=== PATIENT | female | born 1945 | race Caucasian/White ===

== ENCOUNTER → 2017-01-10 | Outpatient (CLI) | payer OTHER, MEDICARE | LOC: BRMIMAGING 14:09 | PROVIDERS: ATTEND Internal Medicine Hematology & Oncology | DX: Z78.0 Asymptomatic menopausal state (principal); Z85.3 Personal history of malignant neoplasm of breast; Z79.899 Other long term (current) drug therapy ==

== ENCOUNTER 2017-01-24 12:18 | Observation (INO) | payer OTHER, MEDICARE ==
[2017-01-24] MEDS ORDERED: fentaNYL 100 MCG/2 ML INJ IVP ONE (13:53)
[2017-01-24] MEDS ORDERED: ONDANSETRON 4 MG/2 ML VIAL IVP ONE (13:53)
--- NOTE | 2017-01-24 13:56 | EDPHY ---
H & P Time Seen by Provider: 01/24/17 13:52 HPI/ROS: CHIEF COMPLAINT: Abdominal pain HISTORY OF PRESENT ILLNESS: Patient is had symptoms intermittently for the last month or maybe 2. Since Tuesday it has been consistent. Located in the right upper quadrant radiates to her back. It is worse if she eats. Currently it is moderate in severity. She was doing okay this morning and had water and coffee at 9:00 a.m. and it is been constant ever since. REVIEW OF SYSTEMS: Eye: no change in vision ENT: no sore throat Cardiac: no chest pain or syncope Pulmonary: no cough or SOB Abdomen: HPI Musculoskeletal: no back pain Skin: no rash Neuro: no headache Constitutional: no fever : no urinary symptoms A comprehensive 10 point review of systems is otherwise negative aside from elements mentioned in the history of present illness. PAST MEDICAL HISTORY: Includes double mastectomy by Dr. Rob Walton, anxiety , thyroid disease, ankle surgery Social history: Last alcohol 1 month ago. Family history: Positive for gallstones in her mother General Appearance: Alert and conversant, cooperative. Eyes: No scleral icterus. ENT, Mouth: Normal mucous membranes. Respiratory: Normal respiratory effort, breath sounds equal, lungs are clear to auscultation. Cardiovascular: Regular rate and rhythm. Gastrointestinal: Right upper quadrant abdominal tenderness. Neurological: Alert and oriented x3. Normally conversant. Face symmetric, normal movement and sensation in all extremities. Skin: Warm and dry, no rashes. Musculoskeletal: No peripheral edema and no joint swelling. Psychiatric: Not agitated. Emergency Department course/MDM: Fentanyl 50 mcg IV, Zofran 4 mg IV, plan for gallbladder ultrasound lipase and LFTs. 1544: Mao, normal right upper quadrant ultrasound without gallstones. No reason for pain. 1545: Discussed with the patient, plan for CT abdomen pelvis, admission, GI consultation. Does not appear to have cholecystitis may require a HIDA scan is still symptomatic. Can't go home because she can't eat or drink anything without severe pain. Patient was admitted to the hospital, CT scan reported by Maureen as showing gastric ulcer. Smoking Status: Never smoked Constitutional: Initial Vital Signs Temperature (C) 36.8 C 01/24/17 12:24 Heart Rate 83 01/24/17 12:24 Respiratory Rate 18 01/24/17 12:24 Blood Pressure 138/69 H 01/24/17 12:24 O2 Sat (%) 95 01/24/17 12:24 O2 Delivery Mode Room Air Allergies/Adverse Reactions: No Allergies [NKA] Allergy (Verified 01/24/17 12:31) Home Medications: Medication Instructions Recorded Levothyroxine [Synthroid 75 mcg 75 mcg PO DAILY AT 6AM 12/09/11 (*)] Anastrozole [Arimidex 1 mg (*)] 1 mg PO HS 05/22/14 DESVENLAFAXINE SUCCINATE [Pristiq] 150 mg PO DAILY 01/24/17 celeCOXIB [Celebrex (*)] 200 mg PO DAILY 01/24/17 Medical Decision Making - Diagnostics Imaging Results: Imaging Impressions Abdomen Ultrasound 01/24/17 14:11 Impression: Fatty infiltration of the liver. Otherwise, negative right upper quadrant ultrasound. Findings and recommendations discussed with Dr. Francis Abdi at 1543 hours on January 24, 2017. Final report concurs with initial preliminary interpretation. Abdomen CT 01/24/17 15:49 Impression: 1. Gastric wall thickening, with an apparent gastric ulcer in the distal stomach, without evidence of perforation. 2. Diverticulosis, without evidence of diverticulitis. 3. Degenerative change in the spine. 4. Additional findings, as above. Findings discussed with Kale, the patient's nurse on January 24, 2017 at 1722 hours. E:NW/amm Differential Diagnosis: Differential diagnosis considered for abdominal pain including but not limited to appendicitis, cholecystitis, pancreatitis, gastritis and urinary tract infection. Consult/Admit Bed Type: [place] [id number],[facility] 1615 - Data Points Laboratory Results: Laboratory Results 01/24/17 13:48 01/24/17 13:48 01/24/17 01/24/17 01/24/17 14:00 13:48 13:48 WBC RBC Hgb Hct MCV MCH MCHC RDW Plt Count MPV Neut % (Auto) Lymph % (Auto) Charlton % (Auto) Eos % (Auto) Baso % (Auto) Nucleat RBC Rel Count Absolute Neuts (auto) Absolute Lymphs (auto) Absolute Monos (auto) Absolute Eos (auto) Absolute Basos (auto) Absolute Nucleated RBC Immature Gran % Immature Gran # Sodium 139 mEq/L mEq/L (134-144) Potassium 4.2 mEq/L mEq/L (3.5-5.2) Chloride 100 mEq/L mEq/L (97-110) Carbon Dioxide 26 mEq/l mEq/l (22-31) Anion Gap 13 mEq/L mEq/L (8-16) BUN 13 mg/dL mg/dL (7-23) Creatinine 0.7 mg/dL mg/dL (0.6-1.0) Estimated GFR > 60 Glucose 84 mg/dL mg/dL (70-100) Calcium 9.5 mg/dL mg/dL (8.5-10.4) Total Bilirubin 0.5 mg/dL mg/dL (0.1-1.4) Conjugated Bilirubin 0.3 mg/dL mg/dL (0.0-0.5) Unconjugated Bilirubin 0.2 mg/dL mg/dL (0.0-1.1) AST 22 IU/L IU/L (14-46) ALT 26 IU/L IU/L (9-52) Alkaline Phosphatase 93 IU/L IU/L (38-126) Total Protein 7.6 g/dL g/dL (6.3-8.2) Albumin 4.5 g/dL g/dL (3.5-5.0) Lipase 137 IU/L IU/L (23-300) H. pylori IgG Antibody NEGATIVE (NEG) 01/24/17 13:48 WBC 5.71 10^3/uL 10^3/uL (3.80-9.50) RBC 4.54 10^6/uL 10^6/uL (4.18-5.33) Hgb 14.4 g/dL g/dL (12.6-16.3) Hct 43.5 % % (38.0-47.0) MCV 95.8 fL fL (81.5-99.8) MCH 31.7 pg pg (27.9-34.1) MCHC 33.1 g/dL g/dL (32.4-36.7) RDW 13.0 % % (11.5-15.2) Plt Count 149 10^3/uL L 10^3/uL (150-400) MPV 11.3 fL fL (8.7-11.7) Neut % (Auto) 55.6 % % (39.3-74.2) Lymph % (Auto) 31.7 % % (15.0-45.0) Charlton % (Auto) 9.1 % % (4.5-13.0) Eos % (Auto) 2.3 % % (0.6-7.6) Baso % (Auto) 1.1 % % (0.3-1.7) Nucleat RBC Rel Count 0.0 % % (0.0-0.2) Absolute Neuts (auto) 3.18 10^3/uL 10^3/uL (1.70-6.50) Absolute Lymphs (auto) 1.81 10^3/uL 10^3/uL (1.00-3.00) Absolute Monos (auto) 0.52 10^3/uL 10^3/uL (0.30-0.80) Absolute Eos (auto) 0.13 10^3/uL 10^3/uL (0.03-0.40) Absolute Basos (auto) 0.06 10^3/uL 10^3/uL (0.02-0.10) Absolute Nucleated RBC 0.00 10^3/uL 10^3/uL (0-0.01) Immature Gran % 0.2 % % (0.0-1.1) Immature Gran # 0.01 10^3/uL 10^3/uL (0.00-0.10) Sodium Potassium Chloride Carbon Dioxide Anion Gap BUN Creatinine Estimated GFR Glucose Calcium Total Bilirubin Conjugated Bilirubin Unconjugated Bilirubin AST ALT Alkaline Phosphatase Total Protein Albumin Lipase H. pylori IgG Antibody Medications Given: Hydromorphone HCl (Dilaudid) 0.25 - 0.5 mg IVP Q4 PRN PRN Reason: Pain, Severe Unable to Take PO Stop: 02/03/17 19:23 Last Admin: 01/24/17 19:58 Dose: 0.5 mg Pantoprazole Sodium 40 mg/ (Sodium Chloride) 100 mls @ 200 mls/hr IV BID NEHAL Stop: 07/23/17 18:44 Last Admin: 01/24/17 18:52 Dose: 100 mls Lidocaine/Diphenhydramine/Alumin/Mg (Maalox/Diphenhydramine/Lido) 30 ml PO PRN PRN PRN Reason: Dyspepsia Stop: 07/23/17 18:32 Last Admin: 01/24/17 18:51 Dose: 30 ml Discontinued Medications Fentanyl (Sublimaze) 50 mcg IVP EDNOW ONE Stop: 01/24/17 13:54 Last Admin: 01/24/17 14:00 Dose: 50 mcg Sodium Chloride (Ns) 1,000 mls @ 0 mls/hr IV ONCE ONE; Wide Open PRN Reason: Protocol Stop: 01/24/17 14:00 Last Admin: 01/24/17 14:00 Dose: 1,000 mls Sodium Chloride (Ns) 1,000 mls @ 0 mls/hr IV EDNOW ONE; Wide Open PRN Reason: Protocol Stop: 01/24/17 15:53 Last Admin: 01/24/17 15:57 Dose: 1,000 mls Morphine Sulfate (Morphine) 4 mg IVP EDNOW ONE Stop: 01/24/17 15:25 Last Admin: 01/24/17 15:33 Dose: 4 mg Ondansetron HCl (Zofran) 4 mg IVP EDNOW ONE Stop: 01/24/17 13:54 Last Admin: 01/24/17 14:00 Dose: 4 mg Departure - Departure Disposition: [facility] Inpatient Acute Clinical Impression: Abdominal pain Qualifiers: Abdominal location: right upper quadrant Qualified Code(s): R10.11 - Right upper quadrant pain Condition: Good
[2017-01-24] MEDS ORDERED: NS 1,000 ML IV ONE ×2 (13:59→15:52)
[2017-01-24 14:00] LABS: % IMMATURE GRANULYOCYTES 0.2 % (0.0-1.1); ABSOLUTE IMMATURE GRANULOCYTES 0.01 10^3/uL (0.00-0.10); ADD DIFF? NO; ADD MORPH? NO; ADD SCAN? NO; ATYPICAL LYMPHOCYTE FLAG 0 (0-99); FRAGMENT RBC FLAG 0 (0-99); HEMATOCRIT 43.5 % (38.0-47.0); HEMOGLOBIN 14.4 g/dL (12.6-16.3); LEFT SHIFT FLG 0 (0-99); LIPEMIA HEMOLYSIS FLAG 80 (0-99); MEAN CELL HEMOGLOBIN 31.7 pg (27.9-34.1); MEAN CELL HEMOGLOBIN CONCENTR. 33.1 g/dL (32.4-36.7); MEAN CELL VOLUME 95.8 fL (81.5-99.8); MEAN PLATELET VOLUME 11.3 fL (8.7-11.7); PLATELET CLUMPS FLAG 0 (0-99); PLATELET COUNT 149 10^3/uL (150-400); RED BLOOD CELL COUNT 4.54 10^6/uL (4.18-5.33)
[2017-01-24 14:12] LABS: ANION GAP 13 mEq/L (8-16); CALCIUM 9.5 mg/dL (8.5-10.4); CARBON DIOXIDE 26 mEq/l (22-31); CHLORIDE 100 mEq/L (97-110); CREATININE 0.7 mg/dL (0.6-1.0); GLOMERULAR FILTRATION RATE > 60; GLUCOSE 84 mg/dL (70-100); POTASSIUM 4.2 mEq/L (3.5-5.2); SODIUM 139 mEq/L (134-144)
[2017-01-24 14:32] LABS: ALBUMIN 4.5 g/dL (3.5-5.0); BILIRUBIN,TOTAL 0.5 mg/dL (0.1-1.4); BILIRUBIN-CONJUGATED 0.3 mg/dL (0.0-0.5); BILIRUBIN-UNCONJUGATED 0.2 mg/dL (0.0-1.1); TOTAL PROTEIN 7.6 g/dL (6.3-8.2)
[2017-01-24] MEDS ORDERED: IOPAMIDOL (ISOVUE-300) 100 ML BTL ONE (15:55)
[2017-01-24] MEDS ORDERED: MBX SOLN 30 ML BOTTLE PO PRN (18:33)
--- NOTE | 2017-01-24 18:38 | SOAPPROG ---
SOAP Progress Note Assessment/Plan: Assessment:Consult dictated. Patient has gastric ulcer on CT. On NSAIDs. Will check H. pylori Ab, start Protonix, GI cocktail. If tolerating POs can go home tomorrow on 12 weeks of Protonix. Will need EGD in a month to confirm healing. No need for inpatient EGD at this time given absence of "red flag" symptoms. Plan: 01/24/17 18:36 Objective: Vital Signs Temp Pulse Resp BP Pulse Ox 36.8 C 68 16 147/68 H 90 L 01/24/17 17:01 01/24/17 17:01 01/24/17 17:01 01/24/17 17:01 01/24/17 17:01 01/23/17 01/24/17 01/25/17 05:59 05:59 05:59 Intake Total 4000 Balance 4000 ICD10 Worksheet Patient Problems: Problems Problem Status Onset Abdominal pain Acute Ankle arthritis Acute
[2017-01-24] MEDS: PANTOPRAZOLE SODIUM 40 MG in NS 100 ML IV SCH ×2 (18:52→21:41)
[2017-01-24] MEDS ORDERED: PROMETHAZINE HCL 25 MG/ML INJ IVP PRN (19:24)
[2017-01-24] MEDS ORDERED: ACETAMINOPHEN 325 MG TAB PO PRN (19:24)
[2017-01-24] MEDS ORDERED: ONDANSETRON 4 MG/2 ML VIAL IVP PRN (19:24)
--- NOTE | 2017-01-24 19:55 | GHP ---
[f rep st] HISTORY AND PHYSICAL DATE OF ADMISSION: 01/24/2017 CHIEF COMPLAINT: Right upper quadrant abdominal pain. HISTORY OF PRESENT ILLNESS: This is a 71-year-old female with a history of arthritis, on Celebrex an d ibuprofen, who presents to the hospital with right upper quadrant abdominal pain. The pain started about a month ago, but it was described as twinges that would come and go. The pain has been increa sing since Tuesday. She described it as a severe, dull ache in her right upper quadrant that is worse with eating. Over the past 24 hours, it has escalated. She denies any vomiting but has had some na usea today. She denies any hematemesis. She denies any melena or bloody stools. She has not been h aving any weight loss. She denies any fevers but has had some chills. PAST MEDICAL HISTORY: Arthritis and breast cancer. PAST SURGICAL HISTORY: 1. Double mastectomies. 2. Right total hip arthroplasty. 3. Left ankle joint replacement. MEDICATIONS: Reviewed. Refer to [employer] for details. ALLERGIES: No known drug allergies. SOCIAL HISTORY: She denies any alcohol, tobacco, or illicit drug use. FAMILY HISTORY: Significant for hypertension. REVIEW OF SYSTEMS: A comprehensive 10-point review of systems was done and that was negative, except for as mentioned in the HPI. PHYSICAL EXAMINATION: VITAL SIGNS: Blood pressure 147/68, pulse 68, respiratory rate 16, O2 sat 90% on room air, temperature afebrile. GENERAL: In no acute distress. HEAD: Normocephalic, atraumati c. EYES: PERRLA. Sclerae anicteric. MOUTH: Moist mucous membranes. NECK: Supple. No lymphaden opathy. CARDIOVASCULAR: S1 and S2. No murmurs, rubs, clicks, gallops, or JVD. No lower extremity edema. PULMONARY: Lungs are clear. No wheezes, rales, or rhonchi. ABDOMEN: Soft. She does have some tenderness to palpation in the right upper quadrant. There is no guarding or rebound tenderness . Normoactive bowel sounds. EXTREMITIES: No clubbing or cyanosis. NEURO: Cranial nerves 2-12 tiffanie ssly intact. No focal motor or sensory deficits. SKIN: Clear. No rashes. DIAGNOSTICS: WBC is 5.7, hemoglobin 14.4, hematocrit 43.5, platelets 149. Sodium 139, potassium 4.2, chloride 100, BUN 13, creatinine 0.7, glucose 84. LFTs were reviewed and unremarkable. Abdominal ultrasound was reviewed, which revealed fatty infiltration of the liver but was otherwise r ead as negative. CT of the abdomen and pelvis was reviewed, showing gastric wall thickening with an apparent gastric u lcer in the distal stomach, without evidence of perforation. Refer to report for full details. ASSESSMENT: This is a 71-year-old female who presents to the hospital with right upper quadrant abdo gallito pain found to have distal gastric ulcer seen on CAT scan, which is likely contributing to the p atient's pain. Other considerations include biliary colic; however, this appears to be less likely g iven her normal LFTs and unremarkable abdominal ultrasound. PLAN: The patient will be admitted to the hospital, where she will be seen by Dr. De Paz from [facility]. We will start with b.i.d. proton pump inhibitors and treat her pain symptomatically. We will defer further imaging, such as a HIDA scan to evaluate her biliary system, at this time since h er pain is most likely due to the gastric ulcer that was seen on CT. I did discuss stopping NSAID tr eatment with the patient, who sounds rather reluctant to do this, and Celebrex has really helped her quality of life, given her multiple joint replacements. I recommended that she start Tylenol. The patient requests to be full code status. If the patient's symptoms are improved in the morning, she can likely be discharged with out patient followup with Dr. De Paz. /[id number]/MODL
[2017-01-24] MEDS: HYDROmorphONE/DILAUDID 2 MG/ML INJ IVP PRN (19:58)
--- NOTE | 2017-01-24 20:05 | GCON ---
[f rep st] CONSULTATION IMPRESSION: Abdominal pain most likely due to a gastric ulcer as documented by CT scan. There is no evidence of gastrointestinal bleeding or other red-flag symptoms. This is most likely due to her no nsteroidal anti-inflammatory drug usage but will need to rule out Helicobacter pylori. RECOMMENDATIONS: 1. Start intravenous Protonix tonight. 2. Mingo diet. 3. Gastrointestinal cocktail for pain control along with narcotics as needed. 4. Would hold EGD at this time given absence of red-flag symptoms but patient will need an endoscopy as an outpatient in approximately a month to confirm healing and rule out any malignant process. 5. If possible, limit nonsteroidal intake. HISTORY OF PRESENT ILLNESS: The patient is a 71-year-old female with long-standing Celebrex for her arthritis. She also supplements this with Advil. For the past month, she has had a right upper quad rant discomfort, which over the last 3 days has become more severe to the point that she has not been able to eat for the last 24 hours as eating makes the pain worse. She denies any melena or bloody s tool or any significant weight loss. She has no previous history of peptic disease. She has had a c olonoscopy which was normal approximately 2 years ago. In the ER, patient underwent evaluation including an ultrasound which was negative and a CT scan whic h showed gastric ulcer. No evidence of perforation or pathologically enlarged lymph nodes. The hayden ent was admitted for observation. PAST MEDICAL HISTORY: Significant for osteoarthritis with replacement of ankle. She also had mastec nino, and is on treatment for anxiety and thyroid disease. MEDICATIONS: Pristiq, Synthroid, Arimidex, Celebrex, and Advil. ALLERGIES: None are known. FAMILY HISTORY: Noncontributory. PHYSICAL EXAM: GENERAL: Reveals normally developed and normally nourished female in no acute distre ss. ABDOMEN: Soft, and flat. There is some tenderness in the right upper quadrant, more toward the flank than would be suspected from a gastric source. No masses, rebound or guarding noted. LABORATORIES: Show normal CBC with hemoglobin 14.4 and hematocrit 43.5, white count 5.7. Chemistrie s are grossly normal. /[id number]/MODL
[2017-01-24] MEDS ORDERED: ANASTROZOLE 1 MG TAB PO SCH (21:00)
[2017-01-25] MEDS ORDERED: LEVOTHYROXINE 75 MCG TAB PO SCH (06:00)
[2017-01-25] MEDS: HYDROmorphONE/DILAUDID 2 MG/ML INJ IVP PRN (06:18)
[2017-01-25] MEDS ORDERED: DESVENLAFAXINE SUCCINATE PO SCH ×2 (09:00)
[2017-01-25] MEDS: PANTOPRAZOLE SODIUM 40 MG in NS 100 ML IV SCH (09:35)
[2017-01-25 10:27] LABS: % IMMATURE GRANULYOCYTES 0.2 % (0.0-1.1); ABSOLUTE IMMATURE GRANULOCYTES 0.01 10^3/uL (0.00-0.10); ADD DIFF? NO; ADD MORPH? NO; ADD SCAN? NO; ATYPICAL LYMPHOCYTE FLAG 0 (0-99); FRAGMENT RBC FLAG 0 (0-99); HEMATOCRIT 41.1 % (38.0-47.0); HEMOGLOBIN 13.4 g/dL (12.6-16.3); LEFT SHIFT FLG 0 (0-99); LIPEMIA HEMOLYSIS FLAG 80 (0-99); MEAN CELL HEMOGLOBIN 32.1 pg (27.9-34.1); MEAN CELL HEMOGLOBIN CONCENTR. 32.6 g/dL (32.4-36.7); MEAN CELL VOLUME 98.3 fL (81.5-99.8); MEAN PLATELET VOLUME 11.4 fL (8.7-11.7); PLATELET CLUMPS FLAG 0 (0-99); PLATELET COUNT 122 10^3/uL (150-400); RED BLOOD CELL COUNT 4.18 10^6/uL (4.18-5.33); RED CELL DISTRIBUTION WIDTH 13.2 % (11.5-15.2)
[2017-01-25] MEDS ORDERED: DOCUSATE SODIUM 100 MG CAP PO SCH (11:30)
[2017-01-25] MEDS: SUCRALFATE 1 GM/10 ML UDCUP PO SCH ×4 (11:36→17:15)
[2017-01-25] MEDS: traMADol 50 MG TAB PO SCH ×2 (11:36→18:06)
[2017-01-25 11:47] VITALS: RESP 18
[2017-01-25 15:19] VITALS: BP 104/65; PULSE 74; TEMP 98.1; O2SAT 94
[2017-01-25] MEDS ORDERED: FLU VACC QS 2017-18 (3YR+)/PF 0.5 ML SYR (FLUARIX QUAD) IM ONE (15:22)
--- NOTE | 2017-01-25 17:50 | PDDCSUM ---
Discharge Summary Discharge Summary: DISCHARGE DIAGNOSES 1- NSAID induced gastric ulcer, h pylori negative 2- acute abdominal pain due to above 3- chronic arthritis with ongoing pain 4- insomnia for which she had been taking nightly advil PM COMPLICATIONS: none CONSULTATIONS: Dr De Paz GI PROCEDURES: adominal CT showing gastric ulcer HOSPITAL COURSE: She responded quite well to discontinued NSAID, PPI use bid, and Carafate before meals. She will be discharged home on PPI bid for 8 weeks, carafate for several days, and no NSAIDS. She will need an EGD to assess for healing of ulcer in 4-6 weeks and she will make appt w Dr De Paz for that. For her arthritis I have ordered some ultram for use for now and suggested aspercream if needed. Once her ulcer is healed, she may be able to consider going back to celebrex, but I recommended she have Dr Posadas and Dr De Paz review her ulcer risks and OA symptoms to decide that. She will avoid other oral nsaids. Ketoprofen gel could be another option. For her insomnia she has been using advil PM and she knows to avoid that medicine now indefinitely. I reviewed that she should try sleep hygiene and other similar measures. If not helpful she could try melatonin or trazodone. FOLLOW UP: with Dr Posadas and with Dr De Paz an EGD is recommended and planned
[2017-01-25] MEDS ORDERED: ANASTROZOLE 1 MG TAB PO SCH (19:00)
[2017-01-26] MEDS ORDERED: DESVENLAFAXINE SUCCINATE PO SCH (09:30)
== END 2017-01-25 18:36 | disposition home or self-care (01) ==
LOC: F1N 16:56
PROVIDERS: ADMIT Internal Medicine; ATTEND Internal Medicine
DX: K25.9 Gastric ulcer, unspecified as acute or chronic, without hemorrhage or perforation (principal); M19.90 Unspecified osteoarthritis, unspecified site; G47.00 Insomnia, unspecified; K76.0 Fatty (change of) liver, not elsewhere classified; K57.30 Diverticulosis of large intestine without perforation or abscess without bleeding; M47.897 Other spondylosis, lumbosacral region; Z90.13 Acquired absence of bilateral breasts and nipples; M48.07 Spinal stenosis, lumbosacral region; Z23 Encounter for immunization
CPT/HCPCS: 74177; 76705; 90686; 96361; 96374; 96375; 99285; G0008; G0378; J1170; J2405; J3010; Q9967

== ENCOUNTER → 2018-03-17 | Outpatient (CLI) | payer OTHER | LOC: FIMAGING 08:41 | PROVIDERS: ATTEND Internal Medicine | DX: Z13.6 Encounter for screening for cardiovascular disorders (principal); E78.5 Hyperlipidemia, unspecified; Z85.3 Personal history of malignant neoplasm of breast ==